=== PATIENT | male | born 1950 | race Caucasian/White ===

== ENCOUNTER 2016-12-02 14:05 | Emergency (ER) | payer MEDICARE, BC ==
[2016-12-02 14:25] VITALS: BP 158/102
--- NOTE | 2016-12-02 14:53 | ERNOTE ---
Abdominal HPI - Narrative Date of Service: 12/02/16 - General Chief Complaint: Constipation Time Seen by Provider: 12/02/16 14:38 Source: family Exam Limitations: no limitations - Immun/Allergies/Home Medications Immunizatons: IMMUNIZATION HX Immunizations Up to Date No History of Influenza Vaccine Yes Hx Pneumococcal Vaccination No Allergies/Adverse Reactions: Allergies No Known Allergies Allergy (Verified 12/02/16 14:21) Home Medications: HOME MEDICATIONS Clonazepam 1 mg PO TID 07/15/16 [Last Taken Unknown] Clopidogrel Bisulfate [Plavix] 75 mg PO DAILY 07/15/16 [Last Taken Unknown] Lisinopril [Zestril] 20 mg PO DAILY 07/15/16 [Last Taken Unknown] Olanzapine [Zyprexa] 20 mg PO DAILY 07/15/16 [Last Taken Unknown] Propranolol HCl [Inderal] 20 mg PO DAILY 07/15/16 [Last Taken Unknown] Simvastatin [Zocor] 20 mg PO HS 07/15/16 [Last Taken Unknown] Docusate Sodium [Colace] 1 cap PO BID PRN #60 cap 12/02/16 [Last Taken Unknown] - History of Present Illness Narrative: Presents with c/o constipation for two weeks. Pt claims he has been unable to have a BM. Has had flatus. Denies any nausea, vomiting, or abdominal pain. Deneis use of any narcotic. Timing: constant Quality: moderate Associated Symptoms: Present: chest pain. Absent: headache, back pain, neck pain, diaphoresis, diarrhea-gross blood, diarrhea-mucous, fatigue, fever/chills , heartburn, nausea, vomiting, loss of appetite, shortness of breath, swelling/ mass in abdomen, syncope, weakness, other Review of Systems - Review of Systems Constitutional: Present: no symptoms reported EYE: Present: no symptoms reported ENT: Present: no symptoms reported Respiratory: Present: no symptoms reported Cardiology: Present: See HPI Gastrointestinal/Abdominal: Present: no symptoms reported Genitourinary: Present: no symptoms reported Musculoskeletal: Present: no symptoms reported Skin: Present: no symptoms reported Neurological: Present: no symptoms reported Endocrine: Present: no symptoms reported Hematologic/Lymphatic: Present: no symptoms reported Psych: Present: no symptoms reported All Other Systems: All systems neg except as marked - Patient's Past Medical History Patient History - Cardiac/Respiratory: Hypertension Patient History - Cancer: No Hx of Cancer Patient History - Surgical Procedures: Appendectomy Patient History - Other: None - Family History Father Family History - Medical: Dementia Family History - Cardiac/Respiratory: No pertinent hx Family History - Cancer: No pertinent family hx Mother Family History - Cardiac/Respiratory: Hyperlipidemia Family History - Cancer: No pertinent family hx - Social History Living Situations: alone Abuse History: No History of abuse Psych History: No pertinent hx Smoking Status: Former smoker Have you smoked in the past 12 months: Yes Do you dip or chew tobacco: No Patient requests Smoking Cessation Consult: No Initiate information on Smoking Cessation: Yes Alcohol Use: occasionally Drug Use: none - Immunizations Immunizations Up to Date: No Hx Pneumococcal Vaccination: No History of Influenza Vaccine: Yes Physical Exam - Physical Exam General Appearance: Present: wd/wn, alert, no apparent distress Neck: Present: normal inspection, nontender Respiratory: Present: no respiratory distress, normal breath sounds, no accessory muscle use, lungs clear, chest tenderness - Left chest wall TTP of area lateral to left nipple, extending into mid axillary region. Cardiovascular/Chest: Present: regular rate, rhythm, no murmur Gastrointestinal/Abdominal: Present: normal bowel sounds, nontender, nondistended, soft, no organomegaly Extremity Exam: Present: normal inspection, non-tender, normal range of motion, no edema Neurological Exam: Present: alert, oriented, normal mood/affect Skin Exam: Present: normal color, warm/dry ED Progress - Results and Orders Patient's Lab Results:: I have reviewed the patient's lab results. - Vital Signs Patient's Vital Signs:: I have reviewed the patient's vital signs. Vital Signs: Vital Signs 12/02/16 14:22 Temperature 36.9 C Pulse Rate 65 Respiratory 16 Rate Blood Pressure 158/102 O2 Sat by Pulse 99 Oximetry - EKG EKG: premature ventricular contraction - occasional, no ST T wave changes EKG read: Interp. by me - Sinus rhythm @ 86 BPM. - Progress/Reassessment Chief Complaint: Constipation Progress:: Improved - Had slight improvement. Small amount of stool after enema X 2 and Mag citrate. Departure - Departure Clinical Impression: Constipation Qualifiers: Constipation type: unspecified constipation type Qualified Code(s): K59.00 - Constipation, unspecified Disposition: Home self-care Condition: Good Instructions: Constipation, Adult, [id number] Additional Instructions: Recommend you purchase another bottle of Magnesium Citrate and drink the whole bottle in the morning. Prescriptions: Docusate Sodium [Colace] 1 cap PO BID PRN #60 cap PRN Reason: Constipation
--- OUTSIDE RECORDS SUMMARY | 2016-12-02 15:23 | XMS REPORT | Continuity of Care Document ---
:1950 Author Organization [facility] ([facility]) Address [address] [place] [address] Phone [phone] Care Team Providers Name Role Phone Theron Blake Primary Care Provider [phone] Source Comments This disclosure is being made pursuant to the Care Everywhere program, applicable federal and state laws, and may not contain all informaitonavailable regarding this patient.[facility] ([facility]) Active Allergies and Adverse Reactions Allergen Noted Date Severity Reactions Comments Haloperidol 04/21/2015 OTHER Current Medications Prescription Sig. Disp. Refills Start Date End Date Status clonazePAM 1 mg tablet Take 1 mg by Active mouth 3 times daily OLANZapine 20 mg Take 20 mg by Active tablet mouth at bedtime aspirin 81 mg EC Take 81 mg by Active tablet mouth daily. Takes most days propranolol 40 mg Take 1 tablet (40 180 tablet 3 07/26/2016 Active tablet mg total) by mouth 2 times daily. lisinopril 20 mg Take 1 tablet (20 90 tablet 3 09/06/2016 Active tablet mg total) by mouth daily. clopidogrel 75 mg Take 1 tablet (75 90 tablet 3 09/06/2016 Active tablet mg total) by mouth daily. simvastatin 20 mg Take 1 tablet (20 90 tablet 3 09/06/2016 Active tablet mg total) by mouth every evening. Active Problems Problem Noted Date Compulsive tobacco user syndrome 09/24/2013 Peripheral vascular disease Hyperlipidemia Hypertension Most Recent Encounters Date Type Specialty Providers Description 09/06/2016 Office Visit Heart and Vascular Jennifer Jaramillo, MANDA Dx: Essential hypertension, benign (Primary Dx) Social History Tobacco Use Types Packs/Day Years Used Date Current Every Day Smoker Cigarettes Tobacco Cessation:Ready to Quit: No; Counseling Given: Yes Comments: Last Filed Vital Signs Vital Sign Reading Time Taken Blood Pressure 140/100 09/06/2016 10:58 AM INDUSTRIAL ENGINEER Pulse 70 09/06/2016 10:58 AM INDUSTRIAL ENGINEER Temperature - - Respiratory Rate 18 12/29/2015 10:11 AM CDT Height 1.753 m (5' 9") 09/06/2016 10:58 AM INDUSTRIAL ENGINEER Weight 75.751 kg (167 lb) 09/06/2016 10:58 AM INDUSTRIAL ENGINEER Body Mass Index 24.65 09/06/2016 10:58 AM INDUSTRIAL ENGINEER Oxygen Saturation - - Plan of Care Date Type Specialty Providers Description 09/05/2017 Appointment Heart and Vascular Jennifer Jaramillo ARNP Chief Comp: Patient [address] [place] [address] Visit [phone] (Fax) Health Maintenance Due Date Last Done Comments HCV Screening 1950 Hepatitis B Vaccine (1 of 3 - Primary Series) 1950 Tdap Vaccine 1963 Lipid Disorder Screening 1970 Td Vaccine 1970 Pneumococcal Vaccine (1 of 1 - PPSV23) 1971 Colonoscopy 2002 Prostate Cancer Screening 2002 Zoster Vaccine 2012 Influenza Vaccine: Seasonal (#1) 04/18/2016 Results from Last 3 Months Not on file
--- OUTSIDE RECORDS SUMMARY | 2016-12-02 15:23 | XMS REPORT | Continuity of Care Document ---
:1950 Author Organization [facility] Address [place] [address] Care Team Providers Name Role Phone Unavailable Primary Care Provider Unavailable Source Comments This disclosure is being made pursuant to the [employer] program and maynot contain all information available regarding this patient.[facility] Active Allergies and Adverse Reactions Not on File Current Medications Be aware that medications may not be up to date as of this document. Alwaysverify current medications with the patient. Not on file Active Problems Not on file Social History Tobacco Use Types Packs/Day Years Used Date Never Assessed Plan of Care Health Maintenance Due Date Last Done Comments Retired-Pertussis Vaccine Adult 1971 Retired-Tetanus Vaccine Adult 1971 Colonoscopy 2002 Well Adult Visit 2002 Zoster Vaccine 60+ 2012 Retired-INFLUENZA VACCINE 05/19/2015 Results from Last 3 Months Not on file
[2016-12-02] MEDS ORDERED: MAGNESIUM CITRATE 300 ML BTL PO ONE (15:59)
[2016-12-02] MEDS ORDERED: MAGNESIUM CITRATE 300 ML BTL ONE (16:04)
== END 2016-12-02 18:00 | disposition home or self-care (01) ==
LOC: ER 14:05
DX: K59.00 Constipation, unspecified (principal); Z87.891 Personal history of nicotine dependence; I10 Essential (primary) hypertension

== ENCOUNTER 2016-12-06 14:18 | Emergency (ER) | payer MEDICARE, BC ==
--- NOTE | 2016-12-06 15:27 | ERNOTE ---
Abdominal HPI - Narrative Date of Service: 12/06/16 - General Chief Complaint: Constipation Time Seen by Provider: 12/06/16 15:22 Source: patient, RN notes reviewed, past records Exam Limitations: no limitations - Immun/Allergies/Home Medications Immunizatons: IMMUNIZATION HX Immunizations Up to Date No History of Influenza Vaccine Yes Hx Pneumococcal Vaccination No Allergies/Adverse Reactions: Allergies No Known Allergies Allergy (Verified 12/06/16 14:44) Home Medications: HOME MEDICATIONS Clonazepam 1 mg PO TID 07/15/16 [Last Taken Unknown] Clopidogrel Bisulfate [Plavix] 75 mg PO DAILY 07/15/16 [Last Taken Unknown] Lisinopril [Zestril] 20 mg PO DAILY 07/15/16 [Last Taken Unknown] Olanzapine [Zyprexa] 20 mg PO DAILY 07/15/16 [Last Taken Unknown] Propranolol HCl [Inderal] 20 mg PO DAILY 07/15/16 [Last Taken Unknown] Simvastatin [Zocor] 20 mg PO HS 07/15/16 [Last Taken Unknown] Docusate Sodium [Colace] 1 cap PO BID PRN #60 cap 12/02/16 [Last Taken Unknown] Polyethylene Glycol 3350 [Gentlelax] 17 gm PO DAILY #510 gm 12/06/16 [Last Taken Unknown] - History of Present Illness Narrative: 66 y/o male ambulatory to the ED for ongoing constipation. He reports not having a bowel movement for 2 weeks. He was seen here on 12/02. He was given 2 soap suds enemas that day and passed a small amount of stool. He then took an entire bottle of Citroma the following day, and again the next day. He has still not passed any stool since he was here. He denies any pain. Prior Treatment: Present: recently seen Review of Systems - Review of Systems Constitutional: Absent: fever, chills, malaise EYE: Present: no symptoms reported ENT: Present: no symptoms reported Respiratory: Present: no symptoms reported Cardiology: Present: no symptoms reported Gastrointestinal/Abdominal: Absent: nausea, vomiting, diarrhea, abdominal pain, eating less, drinking less Genitourinary: Absent: frequency, dysuria Musculoskeletal: Present: no symptoms reported Skin: Present: no symptoms reported Neurological: Absent: headache, dizziness/light-headedness, weakness Endocrine: Present: no symptoms reported Hematologic/Lymphatic: Present: no symptoms reported Psych: Present: no symptoms reported - Patient's Past Medical History Patient History - Medical: No pertinent hx Patient History - Cardiac/Respiratory: Hypertension Patient History - Cancer: No Hx of Cancer Patient History - Surgical Procedures: Appendectomy Patient History - Other: None - Family History Father Family History - Medical: Dementia Family History - Cardiac/Respiratory: No pertinent hx Family History - Cancer: No pertinent family hx Mother Family History - Cardiac/Respiratory: Hyperlipidemia Family History - Cancer: No pertinent family hx - Social History Living Situations: home Abuse History: No History of abuse Psych History: No pertinent hx Smoking Status: Current every day smoker Alcohol Use: occasionally Drug Use: none - Immunizations Immunizations Up to Date: No Hx Pneumococcal Vaccination: No History of Influenza Vaccine: Yes Physical Exam - Physical Exam General Appearance: Present: wd/wn, alert, no apparent distress Respiratory: Present: no respiratory distress, normal breath sounds, no accessory muscle use, lungs clear Cardiovascular/Chest: Present: regular rate, rhythm, no murmur Gastrointestinal/Abdominal: Present: nontender, nondistended, soft, abnormal bowel sounds - hyperactive Extremity Exam: Present: normal inspection, normal range of motion Neurological Exam: Present: alert, oriented, normal mood/affect Skin Exam: Present: normal color, warm/dry ED Progress - Vital Signs Patient's Vital Signs:: I have reviewed the patient's vital signs. Vital Signs: Vital Signs 12/06/16 12/06/16 14:40 15:05 Temperature 37.2 C 36.2 C L Pulse Rate 61 63 Respiratory 16 14 Rate Blood Pressure 168/107 O2 Sat by Pulse 99 100 Oximetry - X-Ray X-Ray #1 X-Ray: abdomen Interpretation: Reviewed by me X-ray Comments: Unremarkable aside from significant stool retention - Progress/Reassessment Chief Complaint: Constipation Progress:: Improved Plan - Plan Plan: Milk and molasses enema given with large results. Bottle of mag citrate sent home with patient to drink this evening. Also rx'd Miralax - discussed titrating to keep stools soft. Departure - Departure Clinical Impression: Constipation Qualifiers: Constipation type: unspecified constipation type Qualified Code(s): K59.00 - Constipation, unspecified Disposition: Home self-care Condition: Good Instructions: Constipation, Adult, [id number] Referrals: Theron Blake DO [Primary Care Provider] - Prescriptions: Polyethylene Glycol 3350 [Gentlelax] 17 gm PO DAILY #510 gm
[2016-12-06 17:46] VITALS: BP 176/109
[2016-12-06] MEDS ORDERED: MAGNESIUM CITRATE 300 ML BTL PO ONE (17:48)
[2016-12-06] MEDS ORDERED: MAGNESIUM CITRATE 300 ML BTL ONE (17:49)
--- OUTSIDE RECORDS SUMMARY | 2016-12-06 20:44 | XMS REPORT | Continuity of Care Document ---
:1950 Author Organization [facility] Address [place] [address] Care Team Providers Name Role Phone Unavailable Primary Care Provider Unavailable Source Comments This disclosure is being made pursuant to the [employer] program and maynot contain all information available regarding this patient.[facility] Active Allergies and Adverse Reactions Not on [...]
--- OUTSIDE RECORDS SUMMARY | 2016-12-06 20:53 | XMS REPORT | Continuity of Care Document ---
:1950 Author Organization [facility] ([facility]) Address [address] [place] [address] Phone [phone] Care Team Providers Name Role Phone Theron Blake Primary Care Provider [phone] Source Comments This disclosure is being made pursuant to the Care Everywhere program, applicable federal and state laws, and may not contain all informaitonavailable regarding this patient.[facility] ([facility]) Active Allergies and Adverse Reactions Allergen Noted [...] syndrome 09/24/2013 Peripheral vascular disease Hyperlipidemia Hypertension Social History Tobacco Use Types Packs/Day Years Used Date Current Every Day Smoker Cigarettes Tobacco Cessation:Ready to Quit: No; Counseling Given: Yes Comments: Last Filed Vital Signs Vital Sign Reading Time Taken Blood Pressure 140/100 09/06/2016 10:58 AM SUPERVISOR AGENCY APPOINTMENTS Pulse 70 09/06/2016 10:58 AM SUPERVISOR AGENCY [employer]POINTMENTS Temperature - - Respiratory Rate 18 12/29/2015 10:11 AM CDT Height 1.753 m (5' 9") 09/06/2016 10:58 AM SUPERVISOR AGENCY APPOINTMENTS Weight 75.751 kg (167 lb) 09/06/2016 10:58 AM SUPERVISOR AGENCY APPOINTMENTS Body Mass Index 24.65 09/06/2016 10:58 AM SUPERVISOR AGENCY APPOINTMENTS Oxygen Saturation - - Plan of Care Date Type Specialty Providers Description 09/05/2017 Appointment Heart and Vascular Jennifer Jaramillo ARNP Chief Comp: Patient [address] [place] [address] Visit [phone] (Fax) Health Maintenance Due Date Last Done [...]
== END 2016-12-06 17:56 | disposition home or self-care (01) ==
LOC: ER 14:18
DX: K59.00 Constipation, unspecified (principal); F17.210 Nicotine dependence, cigarettes, uncomplicated; I10 Essential (primary) hypertension